=== PATIENT | female | born 1985 | race Caucasian/White ===

== ENCOUNTER 2021-09-15 19:21 | Emergency (ER) | payer OTHER ==
[~2021-09-15] VITALS: Ht 157.5 cm; Wt 104.8 kg
[2021-09-15] MEDS ORDERED: IV NORMAL SALINE 1,000ML 1,000 ML IV SCH (20:00)
[2021-09-15] MEDS ORDERED: ONDANSETRON PF 4 MG/2 ML VIAL. IVP ONE (20:00)
[2021-09-15 20:08] VITALS: BP 142/81
--- NOTE | 2021-09-15 20:11 | PHYS DOC ---
General Adult EDM: Chief Complaint: ABDOMINAL PAIN HPI: HPI: Patient is a 36-year-old female who presents to the emergency department for left upper abdominal pain that radiates to her left flank that started 2 weeks ago. Patient has a history of kidney stones and endometriosis. Along with the symptoms of pain she reported nausea, vomiting and chills. She denies any fevers or urinary symptoms. Review of Systems: Review of Systems: Constitutional: See HPI GI: See HPI : See HPI Musculoskeletal: See HPI Current Medications: Current Meds: Current Medications Medications (Trade) Dose Ordered Sig/John Start Time Stop Time Status Last Admin Dose Admin Fentanyl Citrate (Fentanyl 2ml Vial) 50 mcg 1X ONCE 09/15/21 20:00 09/15/21 20:01 UNV Ondansetron HCl (Zofran) 4 mg 1X ONCE 09/15/21 20:00 09/15/21 20:01 UNV Sodium Chloride 1,000 ml @ 1,000 mls/hr Q1H 09/15/21 20:00 09/15/21 20:59 UNV Allergies: Allergies: Allergies Coded Allergies Type Severity Reaction Last Updated Verified No Known Drug Allergies 09/15/21 No Physical Exam: PE: Constitutional: Well developed, well nourished, no acute distress, non-toxic appearance. [] HENT: Normocephalic, atraumatic, bilateral external ears normal, oropharynx moist, no oral exudates, nose normal. [] Eyes: PERRL, EOMI, conjunctiva normal, no discharge. [] Neck: Normal range of motion, no tenderness, supple, no stridor. [] Cardiovascular:Heart rate regular rhythm, no murmur [] Lungs & Thorax: Bilateral breath sounds clear to auscultation [] Abdomen: Bowel sounds normal, soft, mild left upper quadrant tenderness with palpation, negative Forrest sign, no rebound tenderness, no abdominal guarding or rigidity, no masses, no pulsatile masses. [] Skin: Warm, dry, no erythema, no rash. [] Back: No tenderness, no CVA tenderness. [] Extremities: No tenderness, no cyanosis, no clubbing, ROM intact, no edema. [] Neurologic: Alert and oriented X 3, normal motor function, normal sensory function, no focal deficits noted. [] Psychologic: Affect normal, judgement normal, mood normal. [] Current Patient Data: Vital Signs: Laboratory Tests Test 09/15/21 20:03 White Blood Count 12.7 x10^3/uL Red Blood Count 4.64 x10^6/uL Hemoglobin 13.9 g/dL Hematocrit 41.4 % Mean Corpuscular Volume 89 fL Mean Corpuscular Hemoglobin 30 pg Mean Corpuscular Hemoglobin Concent 34 g/dL Red Cell Distribution Width 12.6 % Platelet Count 202 x10^3/uL Neutrophils (%) (Auto) 84 % Lymphocytes (%) (Auto) 11 % Monocytes (%) (Auto) 5 % Eosinophils (%) (Auto) 1 % Basophils (%) (Auto) 0 % Neutrophils # (Auto) 10.6 x10^3uL Lymphocytes # (Auto) 1.4 x10^3/uL Monocytes # (Auto) 0.6 x10^3/uL Eosinophils # (Auto) 0.1 x10^3/uL Basophils # (Auto) 0.0 x10^3/uL Urine Collection Type Unknown Urine Color Yellow Urine Clarity Cloudy Urine pH 5.5 Urine Specific [place] >=1.030 Urine Protein 30 mg/dl Urine Glucose (UA) Neg mg/dL Urine Ketones (Stick) Neg mg/dL Urine Blood Large Urine Nitrite Neg Urine Bilirubin Neg Urine Urobilinogen Dipstick 0.2 mg/dL Urine Leukocyte Esterase Neg Urine RBC 11-20 /HPF Urine WBC 1-4 /HPF Urine Squamous Epithelial Cells Few /LPF Urine Bacteria Mod /HPF Urine Hyaline Casts Many /HPF Sodium Level 139 mmol/L Potassium Level 4.1 mmol/L Chloride Level 104 mmol/L Carbon Dioxide Level 26 mmol/L Anion Gap 9 Blood Urea Nitrogen 19 mg/dL Creatinine 1.1 mg/dL Estimated GFR (Cockcroft-Gault) 55.6 BUN/Creatinine Ratio 17 Glucose Level 97 mg/dL Calcium Level 9.2 mg/dL Total Bilirubin 0.4 mg/dL Aspartate Amino Transf (AST/SGOT) 17 U/L Alanine Aminotransferase (ALT/SGPT) 25 U/L Alkaline Phosphatase 68 U/L Total Protein 7.0 g/dL Albumin 4.3 g/dL Albumin/Globulin Ratio 1.6 Lipase 80 U/L Current Medications Medications (Trade) Dose Ordered Sig/John Route PRN Reason Start Time Stop Time Status Last Admin Dose Admin Sodium Chloride 1,000 ml @ 1,000 mls/hr Q1H IV 09/15/21 20:00 09/15/21 20:59 Fentanyl Citrate (Fentanyl 2ml Vial) 50 mcg 1X ONCE IVP 09/15/21 20:00 09/15/21 20:18 DC Ondansetron HCl (Zofran) 4 mg 1X ONCE IVP 09/15/21 20:00 09/15/21 20:18 DC EKG: EKG: [] Radiology/Procedures: Radiology/Procedures: []PROCEDURE: CT ABDOMEN PELVIS WO CONTRAST Exam: CT abdomen/pelvis without intravenous contrast Indication: Left upper quadrant pain, left flank pain Comparison: None Technique: Helical CT imaging performed of the abdomen and pelvis without the use of intravenous contrast. Sagittal and coronal reformats were obtained. One or more of the following individualized dose reduction techniques were utilized for this examination: 1. Automated exposure control 2. Adjustment of the mA and/or kV according to patient size 3. Use of iterative reconstruction technique. Findings: Inherently limited evaluation without intravenous contrast. Lower chest: Mild atelectasis in the lingula and right middle lobe. The heart is normal in size. Liver: Normal noncontrast appearance of the liver. Gallbladder/Biliary Tree: The gallbladder is surgically absent. Bile ducts are normal. Pancreas: Normal. Spleen: Normal. Adrenal Glands: Normal. Kidneys/Ureters/Bladder: There is mild left hydronephrosis and a 6 mm calculus at the left ureteropelvic junction. There are a few additional tiny calculi in the left kidney. The right kidney and right ureter normal. The bladder is normal. Reproductive Organs: Uterus and ovaries are normal. Stomach, small bowel, and colon: The stomach, small bowel, and colon are unremarkable. Appendix is not clearly identified. Vasculature: No aortic aneurysm. Lymph Nodes: No lymphadenopathy. Peritoneum and retroperitoneum: No free fluid or free air. Bones: No acute osseous abnormality. Miscellaneous: None IMPRESSION: 1. Mild left hydronephrosis due to a 6 mm calculus at the left ureterovesicular junction. 2. Left nephrolithiasis. Electronically signed by: Kassandra Garcia MD (09/15/2021 8:31 PM) [id number] Heart Score: C/O Chest Pain: N/A Risk Factors: Risk Factors: DM, Current or recent (<one month) smoker, HTN, HLP, family history of CAD, obesity. Risk Scores: Score 0 - 3: 2.5% MACE over next 6 weeks - Discharge Home Score 4 - 6: 20.3% MACE over next 6 weeks - Admit for Clinical Observation Score 7 - 10: 72.7% MACE over next 6 weeks - Early Invasive Strategies Course & Med Decision Making: Course & Med Decision Making Pertinent Labs and Imaging studies reviewed. (See chart for details) [] Patient Zentz to the emergency department for left upper quadrant pain that radiates to her flank with nausea and chills. Patient does have a history of endometriosis and kidney stones. Work-up in the ER consisted of blood work including lipase, urinalysis and CT imaging of abdomen and pelvis. Patient treated with IV fluids, nausea and pain medication. Mild leukocytosis with a white blood cell count of 12.7. CMP is unremarkable. Patient's urinalysis is negative for nitrites and leukocytes, she does have blood and a moderate amount of bacteria but there are squamous cells noted. Likely contamination. Discussed with supervising physician. Patient CT scan did show mild left hydro with a 6 mm stone in the L UVJ. Patient will be discharged home with Flomax, pain medication and nausea medication. She will be referred to urology. Patient's vital signs are stable. Her pain is controlled. I discussed with patient all findings and diagnostic testing as well as the need to follow-up with PCP for further evaluation and treatment or return to the ER if any new or worsening symptoms. Strict return precautions were also discussed at length. Patient voiced understanding and agreement with the plan. Patient is hemodynamically stable at the time of disposition. Roshni Disclaimer: Roshni Disclaimer: This electronic medical record was generated, in whole or in part, using a voice recognition dictation system. Departure Departure: Impression: Primary Impression: Kidney stone Disposition: HOME / SELF CARE / HOMELESS Condition: GOOD Referrals: CATIE CHAUHAN DO (PCP) Patient Instructions: Kidney Stones Additional Instructions: Dr. Talavera with urology [phone] You are seen in the emergency department today for flank pain. You are noted to have a kidney stone. Please increase your fluids. Avoid bladder irritants like caffeine, sugary beverages and alcohol. You are being discharged home with nausea medication that you can take as needed. You are also being discharged home with pain medication. This medication is hydrocodone and Tylenol in combination tablet. This medication may cause sedation so do not take when you need to be alert, driving a vehicle or with alcohol. You are being discharged home with a medication called Flomax and this will dilate your ureter to help the stone pass. Also be discharged home with an antibiotic. Please take this completely. Follow-up with the urologist attached to this discharge paperwork as soon as possible, please call them tomorrow. Return to this emergency department or go to [facility] emergency department as they have urology coverage if you develop worsening of your pain, decreased urine output, intractable nausea or vomiting, high fevers refractory to treatment, increased blood in your urine. Scripts Tamsulosin Hcl (FLOMAX) 0.4 Mg Cap.er.24h 1 CAP PO DAILY for kidney stone for 10 Days, #10 CAP 0 Refills Prov: KIMMIE VELIZ APRN 09/15/21 Hydrocodone Bit/Acetaminophen (HYDROCODONE-APAP 5-325 ) 1 Each Tablet 1 TAB PO PRN Q6HRS PRN for PAIN for 2 Days, #8 TAB 0 Refills Prov: KIMMIE VELIZ APRN 09/15/21 Cephalexin (KEFLEX) 500 Mg Capsule 1 CAP PO QID for infection for 7 Days, #28 CAP 0 Refills Prov: KIMMIE VELIZ APRN 09/15/21 Ondansetron (ONDANSETRON ODT) 4 Mg Tab.rapdis 1 TAB PO PRN Q6-8HRS for nausea for 7 Days, #28 TAB 0 Refills Prov: KIMMIE VELIZ APRN 09/15/21 KIMMIE VELIZ APRN September 15, 2021 20:11
[2021-09-15 20:22] LABS: BASO % 0 % (0-3); EOS # 0.1 x10^3/uL (0.0-0.7); EOS % 1 % (0-3); HEMATOCRIT 41.4 % (36.0-47.0); HEMOGLOBIN 13.9 g/dL (12.0-15.5); LYMPH # 1.4 x10^3/uL (1.0-4.8); LYMPH % 11 % (24-48); MEAN CORPUSCULAR HEMOGLOBIN 30 pg (25-35); MEAN CORPUSCULAR HGB CONC 34 g/dL (31-37); MEAN CORPUSCULAR VOLUME 89 fL (79-100); MONO # 0.6 x10^3/uL (0.0-1.1); MONO % 5 % (0-9); NEUT # 10.6 x10^3uL (1.8-7.7); NEUT % 84 % (31-73); PLATELET COUNT 202 x10^3/uL (140-400); RED BLOOD COUNT 4.64 x10^6/uL (3.50-5.40); RED CELL DISTRIBUTION WIDTH 12.6 % (11.5-14.5); WHITE BLOOD COUNT 12.7 x10^3/uL (4.0-11.0)
[2021-09-15 20:29] LABS: CALCIUM 9.2 mg/dL (8.5-10.1); CREATININE 1.1 mg/dL (0.6-1.0); GFR 55.6; POTASSIUM 4.1 mmol/L (3.5-5.1)
--- NOTE | 2021-09-15 20:34 | RAD ---
Exam: CT abdomen/pelvis without intravenous contrast Indication: Left upper quadrant pain, left flank pain Comparison: None Technique: Helical CT imaging performed of the abdomen and pelvis without the use of intravenous cont rast. Sagittal and coronal reformats were obtained. One or more of the following individualized dose reduction techniques were utilized for this examinat ion: 1. Automated exposure control 2. Adjustment of the mA and/or kV according to patient size 3. Use of iterative reconstruction technique. Findings: Inherently limited evaluation without intravenous contrast. Lower chest: Mild atelectasis in the lingula and right middle lobe. The heart is normal in size. Liver: Normal noncontrast appearance of the liver. Gallbladder/Biliary Tree: The gallbladder is surgically absent. Bile ducts are normal. Pancreas: Normal. Spleen: Normal. Adrenal Glands: Normal. Kidneys/Ureters/Bladder: There is mild left hydronephrosis and a 6 mm calculus at the left ureteropel noa junction. There are a few additional tiny calculi in the left kidney. The right kidney and right ureter normal. The bladder is normal. Reproductive Organs: Uterus and ovaries are normal. Stomach, small bowel, and colon: The stomach, small bowel, and colon are unremarkable. Appendix is no t clearly identified. Vasculature: No aortic aneurysm. Lymph Nodes: No lymphadenopathy. Peritoneum and retroperitoneum: No free fluid or free air. Bones: No acute osseous abnormality. Miscellaneous: None IMPRESSION: 1. Mild left hydronephrosis due to a 6 mm calculus at the left ureterovesicular junction. 2. Left nephrolithiasis. Electronically signed by: Kassandra Garcia MD (09/15/2021 8:31 PM) [id number]
[2021-09-15 20:35] LABS: ALBUMIN 4.3 g/dL (3.4-5.0); ALBUMIN/GLOBULIN RATIO 1.6 (1.0-1.7); CLARITY,URINE CLOUDY; COLOR,URINE YELLOW; GLUCOSE,URINE NEG (NEG); TOTAL BILIRUBIN 0.4 mg/dL (0.2-1.0)
[2021-09-15 20:36] LABS: BACTERIA,URINE MOD /HPF (0-FEW); HYALINE CASTS, URINE MANY /HPF; NITRITE,URINE NEG (NEG); SQUAMOUS EPITHELIAL CELL,UR FEW /LPF; UROBILINOGEN,URINE 0.2 mg/dL (0.2 mg/dL)
[2021-09-15] MEDS ORDERED: HYDROcodone/APAP 5/325MG 1 TAB TABLET PO ONE (20:45)
[2021-09-15] MEDS ORDERED: HYDR-2155 PO (20:48)
[2021-09-15] MEDS ORDERED: ONDA4TAB12 PO (20:48)
[2021-09-15] MEDS ORDERED: CEPH500C PO (20:48)
[2021-09-15] MEDS ORDERED: TAMS0.4C97 PO (20:50)
== END 2021-09-15 21:18 | disposition home or self-care (01) ==
LOC: ER 19:21
DX: N13.2 Hydronephrosis with renal and ureteral calculous obstruction (principal); Z87.442 Personal history of urinary calculi
CPT/HCPCS: 36415; 74176; 80053; 81001; 83690; 85025; 87086; 96361; 96374; 96375; 99284; J2405; J3010; J7030